=== PATIENT | female | born 1960 | race Caucasian/White ===

== ENCOUNTER → 2018-05-19 | Outpatient (CLI) | payer OTHER ==
[~2018-05-19] MED LIST: IOPAMIDOL 370 MG/ML 200 ML INFUS..BTL INJ ONE; SODIUM CHLORIDE 0.9% 100 ML 100 ML ONE
[2018-05-19 12:52] LABS: BLOOD UREA NITROGEN 15 mg/dL (7-26); BUN/CREATININE RATIO 19 (6-25); CREATININE, SERUM 0.79 mg/dL (0.57-1.11); EST GLOMERULAR FILTRATION RATE > 60 ML/MIN (60-)
--- NOTE | 2018-05-19 13:56 | Diagnostic Imaging Report ---
CT Angiogram of the chest, with contrast. History: Ascending aortic aneurysm. Comparison: <None available>. TECHNIQUE: Multidetector CT scanning of the chest was performed from the level of the thoracic inlet to the upper abdomen after intravenous contrast. Thoracic aorta protocol was performed. No oral contrast was given. Coronal and sagittal multiplanar reformations were obtained. IV CONTRAST: 100 mL of Isovue 370 RADIATION DOSE: Total DLP: 361.2 mGy*cm Estimated effective dose: (DLP x 0.014 x size factor) mSv Technique: VASCULAR FINDINGS: Aorta and proximal branches: Dilatation of the aortic root and ascending aorta is present without evidence of dissection. Tricuspid aortic valve. There is no evidence of intramural or periaortic hematoma. The innominate, proximal subclavian, and common carotid arteries are normal in branching order and size. The aortic arch and descending thoracic aorta are normal. Measurements are somewhat limited secondary to motion artifact near the aortic origin. Measurements of the aorta are as follows: 3.4 cm at the sinuses of Valsalva, 3.8 cm at the sinotubular junction Limited evaluation at the mid ascending aorta secondary to motion however estimated to measure 4.2 cm. 4.3 cm in the distal ascending aorta, 2.7 cm in the mid aortic arch, 2.3 cm in the proximal descending aorta, 2.2 cm in the mid descending aorta, 2.3 cm at the level of the diaphragmatic hiatus. ADDITIONAL FINDINGS: LINES/ TUBES: None. LUNGS AND AIRWAYS: The central airways are patent. Minimal dependent atelectasis. Simple cyst in the right middle and lower lobes. A 2 mm ground glass opacity in the left lower lobe on series 131, image 50, likely infectious or inflammatory. PLEURA: The pleural spaces are clear. HEART AND MEDIASTINUM: The thyroid gland is normal. No mediastinal, hilar or axillary lymphadenopathy. No cardiomegaly or pericardial effusion. UPPER ABDOMEN: Limited views of the upper abdomen show no abnormality within the visualized spleen, pancreas, or kidneys. The adrenal glands are normal. A 1.1 cm left hepatic lobe hypodense lesion (15 HU), likely a cyst. BONES: No acute bony findings. Mild degenerative disc changes. SOFT TISSUES: Unremarkable. IMPRESSION: Somewhat limited evaluation of the aortic root and ascending aorta secondary to motion. Ascending aortic aneurysm measuring up to 4.3 cm. No evidence of dissection. Signed by: Dr. Autumn Omalley MD on 05/19/2018 1:52 PM
== END ==
LOC: CT 11:20
PROVIDERS: ATTEND Internal Medicine
DX: I71.2 Thoracic aortic aneurysm, without rupture (principal)
CPT/HCPCS: 36415; 71275; 82565; 84520; Q9967

== ENCOUNTER → 2018-06-03 | Outpatient (CLI) | payer OTHER ==
--- NOTE | 2018-06-04 07:40 | Diagnostic Imaging Report ---
History: Cervical spondylosis with myelopathy, prior surgery, prior trauma in 02/2018. Comparison studies: None Technique: Axial images were obtained through the cervical region. Coronal and sagittal images reconstructed from the axial data. Dose modulation, iterative reconstruction, and/or weight based adjustment of the mA/kV was utilized to reduce the radiation dose to as low as reasonably achievable. Intravenous contrast: None Findings: Atlantoaxial articulation: Intact Alignment: Mild cervical kyphosis centered at C3-C4. Proximally 2.5 mm retrolisthesis of C4 on C5. Cervicomedullary junction: No abnormalities. Patent foramen magnum. Soft tissues: No gross abnormalities. Vertebrae: No fractures, neoplasm or infection. Surgical changes: Anterior cervical discectomy and fusion (ACDF) at C5 and C6 with solid interbody fusion. There is cystic changes and vacuum phenomenon within the C5 vertebral body, posterior and superior to the tip of the C5 vertebral body screws. No evidence of hardware failure or loosening. Degenerative changes: C2-C3: Left facet arthrosis. No significant canal or foraminal stenosis. C3-C4: Mildly degenerated disc with loss of disc height. Disc osteophyte complex, uncovertebral arthrosis and severe left facet arthrosis with moderate canal stenosis severe left foraminal stenosis. Patent right foramen. C4-C5: Moderately degenerated disc with loss of disc height and vacuum phenomenon. Disc osteophyte complex, uncovertebral arthrosis and facet arthrosis with severe canal stenosis and severe right and moderate left foraminal stenosis. C5-C6: Surgical level. Uncovertebral and bilateral facet arthrosis with mild left foraminal stenosis. No significant canal or right foraminal stenosis. C6-C7: Moderately degenerated disc with loss of disc height. Mild mixed sclerotic and cystic degenerative endplate changes. Disc osteophyte complex, uncovertebral arthrosis and facet arthrosis moderate canal stenosis and moderate right and mild left foraminal stenosis. C7-T1: Bilateral facet arthrosis. Patent canal and foramina. IMPRESSION: 1. Surgical changes of C5-C6 ACDF. 2. Mild cervical kyphosis and minimal retrolisthesis of C4 on C5. 3. Moderately degenerated C4-C5 and C6-C7 discs adjacent to the levels fused levels. Mildly degenerated C3-C4 disc. 4. Degenerative canal stenosis; severe at C4-C5, moderate at C6-C7 and mild at C3-C4. 5. Degenerative foraminal stenosis; severe left at C3-C4, severe right and moderate left at C4-C5 and moderate right at C6-C7. Signed by: Dr. Josue Barnard M.D. on 06/04/2018 7:37 AM
== END ==
LOC: CT 12:57
PROVIDERS: ATTEND Orthopaedic Surgery Orthopaedic Surgery of the Spine
DX: M47.12 Other spondylosis with myelopathy, cervical region (principal); Z98.1 Arthrodesis status
CPT/HCPCS: 72125